=== PATIENT | female | born 1980 | race Caucasian/White ===

== ENCOUNTER → 2020-06-09 | Outpatient (CLI) | payer BC ==
[~2020-06-09] MED LIST: BACT800T5 PO; HYDR-3713 PO; LIPI20TA PO; OXYB-54 PO; PYRI1TAB5 PO; TOPI50TA9 PO; ZOLM5TAB20 PO
== END ==
LOC: M LABSMTC 10:21
PROVIDERS: ATTEND Anesthesiology
DX: Z01.812 Encounter for preprocedural laboratory examination (principal); Z20.828 Contact with and (suspected) exposure to other viral communicable diseases

== ENCOUNTER 2020-06-12 10:23 | Day surgery (SDC) | payer BC ==
[~2020-06-12] VITALS: Ht 157.5 cm; Wt 49.9 kg
[~2020-06-12 10:23] MED LIST changes: -BACT800T5 PO; +LR 1,000 ML IV ONE; -OXYB-54 PO; -PYRI1TAB5 PO; +ceFAZolin SOD 2 GM in IV 1 EA IV ONE
[2020-06-12] MEDS ORDERED: MIDAZOLAM INJ 2MG/2ML VIAL (J2250 PER 1MG) As Ordered ONE (10:56)
[2020-06-12] MEDS ORDERED: propofoL 200 MG/20 ML VIAL As Ordered ONE (10:57)
[2020-06-12] MEDS ORDERED: fentaNYL 100 MCG/2 ML INJECTION (J3010) As Ordered ONE ×2 (10:57→14:11)
[2020-06-12] MEDS ORDERED: dexameTHASONE 4 MG/ML 1ML VIAL (J1100 PER 1MG) As Ordered ONE (10:58)
[2020-06-12] MEDS ORDERED: LIDOCAINE 2% 100MG/5ML SDV (FOR ANES.) As Ordered ONE (10:58)
[2020-06-12] MEDS ORDERED: CONRAY-60 60% 50ML VIAL (Q9961) As Ordered ONE (12:34)
[2020-06-12] MEDS ORDERED: ONDANSETRON 4MG/2ML VIAL As Ordered ONE (13:09)
[2020-06-12] MEDS ORDERED: ACETAMINOPHEN 1000MG 100ML IV BTL (OFIRMEV) (J0131 PER 10MG) As Ordered ONE (13:17)
[2020-06-12] MEDS ORDERED: ePHEDrine SULFATE 25 MG/5 ML(5MG/ML) SYRINGE As Ordered ONE (13:17)
[2020-06-12] MEDS ORDERED: KETOROLAC 60MG 2ML VIAL As Ordered ONE (13:44)
--- NOTE | 2020-06-12 14:04 | REP ---
INDICATION: NEPHROLITHIASIS, RIGHT STENT PLACEMENT. COMPARISON: [facility]UB 06/08/2020 TECHNIQUE: Single image from C-arm fluoroscopy provided to Dr. Yip of the urology division for ureteral stent placement. FINDINGS: Single postprocedure image with C-arm shows a double pigtail right internal ureteral stent coiled proximally in the renal pelvis and distally in the bladder. Fluoroscopy time: 40 seconds. IMPRESSION: 1. Status post placement internal right ureteral stent. <Electronically signed by Harsh Quintero > 06/12/20 [id number]
[2020-06-12] MEDS ORDERED: BACT800T5 PO (14:12)
[2020-06-12] MEDS ORDERED: OXYB-54 PO (14:12)
[2020-06-12] MEDS ORDERED: PYRI1TAB5 PO (14:12)
[2020-06-12] MEDS ORDERED: LR 1,000 ML IV SCH (14:30)
[2020-06-12] MEDS ORDERED: ONDANSETRON 4MG/2ML VIAL IV PRN (14:30)
[2020-06-12] MEDS ORDERED: oxyCODONE 5MG TAB PO PRN (14:30)
[2020-06-12] MEDS ORDERED: fentaNYL 100 MCG/2 ML INJECTION (J3010) IV PRN (14:30)
[2020-06-12] MEDS ORDERED: PHENAZOPYRIDINE 100 MG TAB PO PRN (14:45)
[2020-06-12] MEDS ORDERED: ANEXSIA, NORCO 7.5MG/325MG TABLET(HYDROCODONE/APAP) PO PRN (14:45)
[2020-06-12 15:22] VITALS: BP 120/68
[2020-06-12] MEDS ORDERED: BACTRIM 160MG/800MG DS TAB PO SCH (21:00)
--- NOTE | 2020-06-15 14:07 | RO ---
DATE OF OPERATION: 06/12/2020 PREOPERATIVE DIAGNOSIS: Right renal calculus. POSTOPERATIVE DIAGNOSIS: Right renal calculus. PROCEDURE: Right ureteroscopic stone extraction with stent placement. SURGEON: Bismark Yip MD ANESTHESIA: General. 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 Follow up study showed the stone to be overlying the renal crest due to a ptotic kidney. We felt that ureteroscopic stone extraction was then only means of clearing this stone. PROCEDURE: After informed consent of the patient she was taken to the operating room where after induction of adequate anesthesia she was prepped and draped in usual manner. The 22-Malaysian diagnostic cystoscope was advanced to the bladder and the bladder inspected. No mucosal lesions noted. A wire was passed without difficulty to the kidney under fluoroscopic control. We were unable to traverse the ureterovesical junction with the flexible ureterorenoscope and therefore dilated this area with 12-Malaysian 4 cm balloon dilator catheter. Thereafter, the flexible ureterorenoscope passed without difficulty over the safety guidewire to the kidney. The kidney was carefully inspected. The stone was identified in one of the lower pole calyces. We were able to successfully grasp it with an NGage basket and withdraw without difficulty through the ureter. We re-inspected the ureter and kidney. No further stones were seen. We again looked at the ureter on scope withdrawal and no significant ureteral injury was noted other than some erythema related to the dilation at the ureterovesical junction. For this reason we elected to leave a ureteral stent. To this end the safety guidewire was re- passed and the procedure concluded with placement of [place] 5, 22-32 stent with string left attached. Confirmation of stent position was obtained fluoroscopically and endoscopically. The patient was transferred to recovery in satisfactory condition. DISPOSITION: She is dismissed home on Pyridium 200 three times a day apparent dysuria. Oxybutynin 5 mg Extended Release one daily as needed for bladder spasms. Septra DS one PO at bedtime. Stent to be pulled on Monday. Follow up in 4-6 weeks. Diet as tolerated. Activity light. Stone has been submitted for analysis. Of note, there were no complications during this procedure. Her only specimen is the stone. [facility]
== END 2020-06-12 15:25 | disposition home or self-care (01) ==
LOC: M SDC 10:23
PROVIDERS: ATTEND Urology
DX: N20.0 Calculus of kidney (principal); E78.5 Hyperlipidemia, unspecified; G43.909 Migraine, unspecified, not intractable, without status migrainosus; Z79.899 Other long term (current) drug therapy
CPT/HCPCS: 52332; 52352; 74420; 82365; 88300; C1769; C2617; J0131; J0690; J1100; J1885; J2250; J2405; J3010; Q9961